=== PATIENT | male | born 1940 | race Caucasian/White ===

== ENCOUNTER → 2018-10-05 | Outpatient (CLI) | payer MEDICARE, BC ==
[2018-10-05 09:32] LABS: INR 1.5 (0.8-1.4); PROTHROMBIN TIME PATIENT 18.6 SEC (12.2-14.7)
== END ==
LOC: LAB FS 08:28
PROVIDERS: ATTEND Pediatrics
DX: I51.3 Intracardiac thrombosis, not elsewhere classified (principal); Z86.73 Personal history of transient ischemic attack (TIA), and cerebral infarction without residual deficits
CPT/HCPCS: 36415; 85610

== ENCOUNTER 2019-04-01 09:02 | Outpatient (RCR) | payer MEDICARE ==
[2019-04-01 10:04] LABS: INR 1.5 (0.8-1.4); PROTHROMBIN TIME PATIENT 19.1 SEC (12.2-14.7)
== END 2019-06-30 | disposition home or self-care (01) ==
LOC: LAB FS 09:02
PROVIDERS: ATTEND Pediatrics
DX: I51.3 Intracardiac thrombosis, not elsewhere classified (principal); Z86.73 Personal history of transient ischemic attack (TIA), and cerebral infarction without residual deficits
CPT/HCPCS: 36415; 85610

== ENCOUNTER 2019-04-11 13:07 | Outpatient (RCR) | payer MEDICARE | END 2019-07-10 | disposition home or self-care (01) | LOC: RAD 13:07 | PROVIDERS: ATTEND Pediatrics | DX: E11.9 Type 2 diabetes mellitus without complications (principal); Z79.84 Long term (current) use of oral hypoglycemic drugs ==

== ENCOUNTER → 2019-06-07 | Outpatient (CLI) | payer MEDICARE ==
[2019-06-07 08:17] LABS: SODIUM 142 MMOL/L (135-145)
[2019-06-07 08:18] LABS: ALANINE AMINOTRANSFERASE 16 U/L (0-55); ALBUMIN 3.7 GM/DL (3.2-4.5); ALKALINE PHOSPHATASE 88 U/L (40-136); BILIRUBIN,TOTAL 0.4 MG/DL (0.1-1.0); BUN/CREATININE RATIO 23; CALCIUM 8.9 MG/DL (8.5-10.1); CARBON DIOXIDE 25 MMOL/L (21-32); CHLORIDE 106 MMOL/L (98-107); CREATININE SERUM 0.87 MG/DL (0.60-1.30); GFR ESTIMATED > 60; GLUCOSE 143 MG/DL (70-105); POTASSIUM 4.6 MMOL/L (3.6-5.0)
== END ==
LOC: LAB FS 07:07
PROVIDERS: ATTEND Pediatrics
DX: E11.9 Type 2 diabetes mellitus without complications (principal); R73.09 Other abnormal glucose
CPT/HCPCS: 36415; 80053; 83036

== ENCOUNTER → 2019-08-01 | Outpatient (CLI) | payer MEDICARE ==
[2019-08-01 08:38] LABS: INR 1.3 (0.8-1.4); PROTHROMBIN TIME PATIENT 16.9 SEC (12.2-14.7)
== END ==
LOC: LAB FS 07:21
PROVIDERS: ATTEND Pediatrics
DX: I51.3 Intracardiac thrombosis, not elsewhere classified (principal); Z86.73 Personal history of transient ischemic attack (TIA), and cerebral infarction without residual deficits
CPT/HCPCS: 36415; 85610

== ENCOUNTER 2019-08-08 08:18 | Outpatient (RCR) | payer MEDICARE ==
[2019-08-08 09:00] LABS: INR 1.5 (0.8-1.4); PROTHROMBIN TIME PATIENT 18.8 SEC (12.2-14.7)
== END 2019-11-06 | disposition home or self-care (01) ==
LOC: LAB FS 08:18
PROVIDERS: ATTEND Pediatrics
DX: I51.3 Intracardiac thrombosis, not elsewhere classified (principal); Z86.73 Personal history of transient ischemic attack (TIA), and cerebral infarction without residual deficits
CPT/HCPCS: 36415; 85610

== ENCOUNTER 2019-08-23 07:54 | Outpatient (RCR) | payer MEDICARE ==
[2019-08-23 08:32] LABS: INR 1.5 (0.8-1.4); PROTHROMBIN TIME PATIENT 19.1 SEC (12.2-14.7)
== END 2019-11-21 | disposition home or self-care (01) ==
LOC: LAB FS 07:54
PROVIDERS: ATTEND Pediatrics
DX: I51.3 Intracardiac thrombosis, not elsewhere classified (principal); Z86.73 Personal history of transient ischemic attack (TIA), and cerebral infarction without residual deficits
CPT/HCPCS: 36415; 85610

== ENCOUNTER 2019-09-19 10:43 | Outpatient (RCR) | payer MEDICARE ==
[2019-09-19 11:53] LABS: PROTHROMBIN TIME PATIENT 20.6 SEC (12.2-14.7)
[2019-09-19 11:54] LABS: INR 1.7 (0.8-1.4)
== END 2019-12-18 | disposition home or self-care (01) ==
LOC: LAB FS 10:43
PROVIDERS: ATTEND Pediatrics
DX: Z86.73 Personal history of transient ischemic attack (TIA), and cerebral infarction without residual deficits (principal)
CPT/HCPCS: 36415; 85610